=== PATIENT | female | born 1960 | race Caucasian/White ===

== ENCOUNTER → 2016-04-09 | Outpatient (CLI) | payer BC ==
[~2016-04-09] MED LIST: CEFTIN500 MG PO; CIPRO 500MG TA500 MG PO; GLUCOPHAGE1000 MG PO; IRON325 M2 PO; JANUVIA 100MG100 MG PO; LORTAB 5/500 501 TAB PO; NO HOME MEDICATIONS; NORCO 325 MG-51 TAB PO; NPLATE250 MCG SC; PREDNISONE10 MG PO; PRILOSEC 20MG20 MG PO; ZANTAC 7575 MG; ZOFRAN ODT4 MG PO
== END ==
LOC: COL.RAD 09:45
DX: K74.69 Other cirrhosis of liver (principal); K75.81 Nonalcoholic steatohepatitis (NASH); R74.8 Abnormal levels of other serum enzymes

== ENCOUNTER → 2016-05-07 | Outpatient (REF) | LOC: WSOH 08:14 | DX: Z02.1 Encounter for pre-employment examination (principal) ==

== ENCOUNTER 2017-08-15 13:57 | Emergency (ER) | payer BC ==
[~2017-08-15] VITALS: Ht 157.5 cm; Wt 82.7 kg
[2017-08-15 13:59] VITALS: BP 135/66; TEMP 98.1
[2017-08-15] MEDS ORDERED: PREDNISONE10 MG PO (14:41)
[2017-08-15 15:18] VITALS: PULSE 84
== END 2017-08-15 15:10 | disposition home or self-care (01) ==
LOC: COL.ER 13:57
DX: L57.8 Other skin changes due to chronic exposure to nonionizing radiation (principal); Z79.84 Long term (current) use of oral hypoglycemic drugs
CPT/HCPCS: J7512

== ENCOUNTER → 2018-04-24 | Outpatient (CLI) | payer BC | LOC: COL.RAD 08:49 | DX: K75.81 Nonalcoholic steatohepatitis (NASH) (principal); D50.9 Iron deficiency anemia, unspecified; I85.00 Esophageal varices without bleeding; K74.60 Unspecified cirrhosis of liver; Z90.49 Acquired absence of other specified parts of digestive tract ==

== ENCOUNTER 2018-05-31 13:21 | Day surgery (SDC) | payer BC ==
[2018-05-31] VITALS (7 sets, daily range): BP systolic 125–155; BP diastolic 77–85; PULSE 77–90; TEMP 98.1–98.3
[~2018-05-31] VITALS: Ht 157.5 cm; Wt 78.4 kg
[~2018-05-31 13:21] MED LIST changes: -ZANTAC 7575 MG; +ZANTAC 7575 MG PO
[2018-05-31] MEDS ORDERED: PRINIVIL2.5 MG PO (14:12)
[2018-05-31] MEDS ORDERED: CLARITIN 1010 MG/TAB PO (14:13)
--- NOTE | 2018-05-31 15:15 | NUR ---
Patient returned to [facility], alert and oriented. Ambulated to recliner without any difficulty. Vital signs obtained stable. States that her throat continues to hurt. Able to walk to bathroom and urinated. Requesting tea, juice, and muffins. Tolerating well. No issues with swallowing. Will continue to monitor.
--- NOTE | 2018-05-31 15:45 | NUR ---
Patient states that she currently has increased nausea. Medications given per orders. Friend tito brought back to bedside. Will continue to monitor.
--- NOTE | 2018-05-31 16:10 | NUR ---
Patient is complaining of increased pain of 8/10 to throat. B/P steadily increasing. Made MD aware. Orders given for ultram 50mg po now. Med to be administered once arrived from pharmacy. Will continue to monitor.
--- NOTE | 2018-05-31 17:50 | NUR ---
Patient states that she is ready to go home. Pain has decreased slighty. All discharge instructions reviewed with patient and friend. All questions answered. Patient wheeled down to lobby by RN. To be driven home by friend Glo.
== END 2018-05-31 17:50 | disposition home or self-care (01) ==
LOC: SDCO 13:21
DX: I85.00 Esophageal varices without bleeding (principal); K74.60 Unspecified cirrhosis of liver; G47.33 Obstructive sleep apnea (adult) (pediatric); K21.9 Gastro-esophageal reflux disease without esophagitis; D69.3 Immune thrombocytopenic purpura; D50.9 Iron deficiency anemia, unspecified; E11.9 Type 2 diabetes mellitus without complications; Z90.49 Acquired absence of other specified parts of digestive tract; Z79.899 Other long term (current) drug therapy; Z79.84 Long term (current) use of oral hypoglycemic drugs; R19.00 Intra-abdominal and pelvic swelling, mass and lump, unspecified site
CPT/HCPCS: J2405; J2704; J3010

== ENCOUNTER 2018-12-09 19:17 | Emergency (ER) | payer BC ==
[~2018-12-09] VITALS: Ht 157.5 cm; Wt 75.0 kg
[~2018-12-09 19:17] MED LIST changes: +CLARITIN 1010 MG/TAB PO; +PRINIVIL2.5 MG PO
[2018-12-09 19:28] VITALS: BP 131/65; TEMP 98.2
[2018-12-09] MEDS ORDERED: AMOXICILLIN 8751 TAB PO (21:00)
[2018-12-09 21:14] VITALS: PULSE 79
== END 2018-12-09 21:13 | disposition home or self-care (01) ==
LOC: COL.ER 19:17
DX: S61.012A Laceration without foreign body of left thumb without damage to nail, initial encounter (principal); K21.9 Gastro-esophageal reflux disease without esophagitis; Z87.891 Personal history of nicotine dependence; Z23 Encounter for immunization; W26.0XXA Contact with knife, initial encounter

== ENCOUNTER 2019-03-10 20:12 | Emergency (ER) | payer BC ==
[~2019-03-10] VITALS: Ht 5.1 cm; Wt 76.4 kg
[~2019-03-10 20:12] MED LIST changes: +AMOXICILLIN 8751 TAB PO
[2019-03-10 20:32] VITALS: BP 132/68; TEMP 97.4
[2019-03-10 22:31] VITALS: PULSE 93
== END 2019-03-10 22:31 | disposition home or self-care (01) ==
LOC: COL.ER 20:12
DX: S61.412A Laceration without foreign body of left hand, initial encounter (principal); W26.0XXA Contact with knife, initial encounter; Y92.009 Unspecified place in unspecified non-institutional (private) residence as the place of occurrence of the external cause

== ENCOUNTER → 2019-06-06 | Outpatient (CLI) | payer SELFPAY ==
[2019-06-06 08:43] LABS: BASO # 0.1 (0.0-0.2); BASO % 1.8 % (0.0-2.0); EOS # 0.3 (0.0-0.7); EOS % 5.3 % (0-4.0); GRAN # 3.5 (1.4-6.5); GRAN % 63.5 % (42.2-75.2); HEMATOCRIT 38.5 % (37.0-47.0); HEMOGLOBIN 12.4 g/dl (12.5-16.0); LYMPH # 1.2 (1.2-3.4); LYMPH % 21.3 % (20.0-51.0); MEAN CELL VOLUME 87 fl (80.0-100.0); MEAN CORPUSCULAR HEMOGLOBIN 28 pg (27.0-31.0); MEAN CORPUSCULAR HGB CONC 32 g/dl (33.0-37.0); MONO # 0.4 (0.1-0.6); MONO % 7.9 % (1.7-9.3); RED BLOOD COUNT 4.41 M/mm3 (4.10-5.30); REDCELL DISTRIBUTION WIDTH-CV 14.4 % (11.5-14.5)
[2019-06-06 09:54] LABS: PLATELET COUNT 8 K/mm3 (130-400)
== END ==
LOC: COL.LAB 08:05
PROVIDERS: Internal Medicine
DX: Z01.89 Encounter for other specified special examinations (principal)

== ENCOUNTER → 2019-07-09 | Outpatient (CLI) | payer SELFPAY ==
[2019-07-09 16:15] LABS: HEMATOCRIT 43.1 % (37.0-47.0); HEMOGLOBIN 13.9 g/dl (12.5-16.0); MEAN CELL VOLUME 86 fl (80.0-100.0); MEAN CORPUSCULAR HEMOGLOBIN 28 pg (27.0-31.0); MEAN CORPUSCULAR HGB CONC 32 g/dl (33.0-37.0); REDCELL DISTRIBUTION WIDTH-CV 14.9 % (11.5-14.5)
[2019-07-09 18:02] LABS: PLATELET COUNT 21 K/mm3 (130-400)
== END ==
LOC: COL.LAB 15:07
PROVIDERS: Internal Medicine
DX: D69.6 Thrombocytopenia, unspecified (principal)

== ENCOUNTER → 2019-07-16 | Outpatient (CLI) | payer SELFPAY ==
[2019-07-16 17:18] LABS: HEMATOCRIT 41.1 % (37.0-47.0); MEAN CELL VOLUME 83 fl (80.0-100.0); MEAN CORPUSCULAR HEMOGLOBIN 28 pg (27.0-31.0); MEAN CORPUSCULAR HGB CONC 34 g/dl (33.0-37.0); RED BLOOD COUNT 4.94 M/mm3 (4.10-5.30); REDCELL DISTRIBUTION WIDTH-CV 14.7 % (11.5-14.5)
[2019-07-16 17:56] LABS: PLATELET COUNT 35 K/mm3 (130-400)
== END ==
LOC: COL.LAB 16:47
PROVIDERS: Internal Medicine
DX: D69.6 Thrombocytopenia, unspecified (principal)

== ENCOUNTER → 2019-07-23 | Outpatient (CLI) | payer SELFPAY ==
[2019-07-23 16:23] LABS: HEMATOCRIT 45.4 % (37.0-47.0); HEMOGLOBIN 15.3 g/dl (12.5-16.0); MEAN CELL VOLUME 84 fl (80.0-100.0); MEAN CORPUSCULAR HEMOGLOBIN 28 pg (27.0-31.0); MEAN CORPUSCULAR HGB CONC 34 g/dl (33.0-37.0); RED BLOOD COUNT 5.42 M/mm3 (4.10-5.30); REDCELL DISTRIBUTION WIDTH-CV 15.4 % (11.5-14.5)
[2019-07-23 16:37] LABS: PLATELET COUNT 15 K/mm3 (130-400)
== END ==
LOC: COL.LAB 15:58
PROVIDERS: Internal Medicine
DX: D69.6 Thrombocytopenia, unspecified (principal)

== ENCOUNTER → 2019-07-30 | Outpatient (CLI) | payer SELFPAY ==
[2019-07-30 14:57] LABS: HEMATOCRIT 40.5 % (37.0-47.0); HEMOGLOBIN 13.8 g/dl (12.5-16.0); MEAN CELL VOLUME 85 fl (80.0-100.0); MEAN CORPUSCULAR HEMOGLOBIN 29 pg (27.0-31.0); MEAN CORPUSCULAR HGB CONC 34 g/dl (33.0-37.0); RED BLOOD COUNT 4.78 M/mm3 (4.10-5.30); REDCELL DISTRIBUTION WIDTH-CV 15.6 % (11.5-14.5)
[2019-07-30 15:06] LABS: PLATELET COUNT 22 K/mm3 (130-400)
== END ==
LOC: COL.LAB 14:18
PROVIDERS: Internal Medicine
DX: D69.6 Thrombocytopenia, unspecified (principal)

== ENCOUNTER → 2019-08-06 | Outpatient (CLI) | payer SELFPAY ==
[2019-08-06 12:20] LABS: HEMATOCRIT 41.2 % (37.0-47.0); HEMOGLOBIN 13.5 g/dl (12.5-16.0); MEAN CELL VOLUME 87 fl (80.0-100.0); MEAN CORPUSCULAR HEMOGLOBIN 29 pg (27.0-31.0); MEAN CORPUSCULAR HGB CONC 33 g/dl (33.0-37.0); RED BLOOD COUNT 4.74 M/mm3 (4.10-5.30); REDCELL DISTRIBUTION WIDTH-CV 16.1 % (11.5-14.5)
[2019-08-06 12:29] LABS: PLATELET COUNT 19 K/mm3 (130-400)
== END ==
LOC: COL.LAB 11:40
PROVIDERS: Internal Medicine
DX: D69.6 Thrombocytopenia, unspecified (principal)